=== PATIENT | male | born 1960 | race Caucasian/White ===

== ENCOUNTER 2019-12-11 10:08 | Inpatient (IN) ==
[2019-12-11] MEDS ORDERED: Acetaminophen 325 MG TABLET PO PRN (12:56)
[2019-12-11] MEDS ORDERED: Naloxone 0.4 MG/ML INJ IVP PRN (12:56)
[2019-12-11] MEDS: Carbidopa/Levodopa 25/100 TABLET PO SCH ×2 (18:52→23:58)
[2019-12-11] MEDS: hydrALAZINE 10 MG TABLET PO PRN (20:49)
[2019-12-12] MEDS: Carbidopa/Levodopa 25/100 TABLET PO SCH ×6 (03:17→23:52)
[2019-12-12 04:13] LABS: Basophils # 0.1 K/mcL (0.0-0.2); Basophils % 0.9 %; Eosinophils # 0.1 K/mcL (0.0-0.6); Eosinophils % 1.8 %; Hematocrit 41.6 % (37.5-50.1); Hemoglobin 14.3 g/dL (12.9-16.9); Immature Granulocytes % 0.4 % (0-4); Lymphocytes % 18.6 %; Mean Corpuscular HGB Conc 34.4 g/dL (31.6-35.5); Mean Corpuscular Hemoglobin 29.2 pg (28.0-33.3); Mean Corpuscular Volume 85.1 fL (83.0-100.0); Mean Platelet Volume 9.8 fL (9.4-12.4); Monocytes # 0.4 K/mcL (0.0-1.3); Monocytes % 7.1 %; Neutrophils # 3.9 K/mcL (1.6-8.9); Platelet Count 248 K/mcL (140-400); Red Blood Count 4.89 M/mcL (4.19-5.50); Segmented Neutrophils % 71.2 %; White Blood Count 5.5 K/mcL (4.3-11.1)
[2019-12-12 04:31] LABS: Alanine Aminotransferase 3 Units/L (7-52); Albumin 3.9 g/dL (3.5-5.7); Albumin/Globulin Ratio 1.9 (1.1-2.2); Alkaline Phosphatase 127 Units/L (34-104); Aspartate Amino Transferase 14 Units/L (13-39); BUN/Creatinine Ratio 15 (6-26); Bilirubin,Total 0.8 mg/dL (0.3-1.0); Blood Urea Nitrogen 15 mg/dL (8-23); Calcium 9.2 mg/dL (8.6-10.3); Carbon Dioxide 27 mEq/L (23-29); Chloride 106 mEq/L (98-107); Globulin 2.1 g/dL (2.4-3.5); Glucose 120 mg/dL (70-105); Osmolality,Calculated 292 (280-300); Phosphorous 3.5 mg/dL (2.7-4.5); Potassium 4.1 mEq/L (3.5-5.1); Sodium 140 mEq/L (136-145); eGFR For African Americans > 60 (> 60); eGFR For Non-African Americans > 60 (> 60)
[2019-12-12 08:34] LABS: Estimated Average Glucose 114 mg/dl
[2019-12-12] MEDS: NIFEdipine XL (24 HR) 30 MG TAB.ER.24 PO SCH (08:45)
[2019-12-12] MEDS: QUEtiapine Fumarate 25 MG TABLET PO SCH ×2 (15:22→20:56)
[2019-12-13] MEDS: Carbidopa/Levodopa 25/100 TABLET PO SCH ×5 (04:07→22:25)
[2019-12-13] MEDS: hydrALAZINE 10 MG TABLET PO PRN (05:43)
[2019-12-13] MEDS: QUEtiapine Fumarate 25 MG TABLET PO SCH ×3 (13:28→22:25)
[2019-12-13] MEDS: NIFEdipine XL (24 HR) 30 MG TAB.ER.24 PO SCH (13:35)
[2019-12-14] MEDS: Carbidopa/Levodopa 25/100 TABLET PO SCH ×7 (00:28→23:03)
[2019-12-14] MEDS: QUEtiapine Fumarate 25 MG TABLET PO SCH ×2 (10:35→21:16)
[2019-12-14] MEDS: NIFEdipine XL (24 HR) 30 MG TAB.ER.24 PO SCH (10:36)
[2019-12-14] MEDS ORDERED: QUEtiapine Fumarate 25 MG TABLET PO SCH (12:30)
[2019-12-15] MEDS: Carbidopa/Levodopa 25/100 TABLET PO SCH ×3 (05:02→11:43)
[2019-12-15] MEDS: QUEtiapine Fumarate 25 MG TABLET PO SCH (08:57)
[2019-12-15] MEDS: NIFEdipine XL (24 HR) 30 MG TAB.ER.24 PO SCH (09:00)
[2019-12-15 10:53] VITALS: BP 124/55
== END 2019-12-15 16:10 | disposition other institution (70) | DRG 57 ==
LOC: 3ANU 10:08 → EMEROOARM 10:08 → SUATTDRO 13:07 → 3ANU 14:00
PROVIDERS: ADMIT Internal Medicine; ATTEND Internal Medicine